=== PATIENT | female | born 2000 | race Hispanic/Latino ===

== ENCOUNTER 2018-09-14 | Emergency (ER) | payer BC, OTHER ==
[2018-09-14] MEDS ORDERED: IPRATROPIUM/ALBUTEROL SULFATE 3 ML SOLUTION IH ONE (00:24)
[2018-09-14] MEDS ORDERED: METHYLPREDNISOLONE SOD SUCC 40MG/ML 1ML ONE (01:04)
== END 2018-09-14 01:15 | disposition home or self-care (01) ==
LOC: EDH
DX: J45.909 Unspecified asthma, uncomplicated (principal); F15.10 Other stimulant abuse, uncomplicated
CPT/HCPCS: 71045; 94640; 96372; 99283; A4218; J2920

== ENCOUNTER 2019-03-10 22:24 | Emergency (ER) | payer BC ==
[2019-03-10] MEDS ORDERED: SODIUM CHLORIDE 0.9% 1000ML 1,000 ML IV ONE ×2 (22:49→23:03)
[2019-03-10 22:53] LABS: BASOPHILS % (AUTO) 0.7 % (0.0-5.0); EOSINOPHILS % (AUTO) 0.2 % (0.0-8.0); HEMATOCRIT 38.5 % (36-48); LYMPHOCYTES % (AUTO) 12.3 % (21.0-51.0); MEAN CORPUSCULAR HEMOGLOBIN 29.4 pg (27.0-33.0); MEAN CORPUSCULAR HGB CONC 34.7 g/dL (32.0-36.0); MEAN CORPUSCULAR VOLUME 84.9 fL (80-100); MONOCYTES % (AUTO) 8.8 % (3.0-13.0); PLATELET COUNT (AUTO) 282 K/uL (130-400); RED BLOOD CELL COUNT(AUTO) 4.54 MIL/uL (4.00-5.50); RED CELL DISTRIBUTION WIDTH 12.9 % (11.0-15.5); WHITE BLOOD COUNT (AUTO) 11.3 K/uL (4.8-10.8)
[2019-03-10 22:59] LABS: APPEARANCE,URINE Clear (CLEAR); BILIRUBIN,URINE Negative (NEGATIVE); COLOR,URINE Dark Yellow (YELLOW); GLUCOSE, URINE (UA) Negative (NEGATIVE); KETONES,URINE 15 mg/dL (NEGATIVE); LEUKOCYTE ESTERASE ,URINE Small (NEGATIVE); NITRATE,URINE Negative (NEGATIVE); OCCULT BLOOD,URINE Moderate (NEGATIVE); PROTEIN,URINE Trace mg/dL (NEGATIVE)
[2019-03-10 23:01] LABS: CARBON DIOXIDE 26 mmol/L (21-32); CHLORIDE 101 mmol/L (101-111); CREATININE 0.7 mg/dL (0.5-1.5); GLOMERULAR FILTR. RATE CALC 113 mL/min (>60); GLUCOSE,RANDOM 112 mg/dL (70-105); POTASSIUM 3.1 mmol/L (3.5-5.1); SODIUM SERUM 136 mmol/L (136-145); UREA NITROGEN, BLOOD 10 mg/dL (7-18)
[2019-03-10] MEDS ORDERED: ONDANSETRON HCL 4 MG/2 ML VIAL ONE (23:03)
[2019-03-10] MEDS ORDERED: LEVOFLOXACIN 750 MG/D5W 150 ML 150 ML ONE (23:04)
[2019-03-10 23:09] LABS: INR 1.07 (0.85-1.15); PARTIAL THROMBOPLASTIN TIME 29.5 SEC (26.3-35.5); PROTHROMBIN TIME 11.2 SEC (9.6-11.6)
[2019-03-10 23:13] LABS: ALANINE AMINOTRANSFERASE 23 U/L (12-78); ALBUMIN 3.6 g/dL (3.5-5.0); ASPARTATE AMINOTRANSFERASE 19 U/L (10-37); BILIRUBIN,TOTAL 1.1 mg/dL (0.2-1.0); CREATINE KINASE, TOTAL 39 U/L (21-232); MYOGLOBIN 21 ng/mL (10-92); TOTAL PROTEIN, SERUM 7.2 g/dL (6.0-8.3); TROPONIN I < 0.04 ng/mL (0.00-0.06)
[2019-03-10 23:18] LABS: WBC,URINE 0-1 /HPF (0-1)
[2019-03-10 23:19] LABS: BACTERIA,URINE Moderate /HPF (None Seen); MUCUS,URINE Moderate LPF (None Seen)
[2019-03-10] MEDS ORDERED: ACETAMINOPHEN 325 MG TAB ONE (23:29)
[2019-03-10] MEDS ORDERED: DiphenhydrAMINE HCL 50 MG/ML VIAL ONE (23:29)
[2019-03-11] MEDS ORDERED: SODIUM CHLORIDE 0.9% 500 ML IV ONE (01:08)
== END 2019-03-11 01:51 | disposition home or self-care (01) ==
LOC: EDH 22:24
DX: K52.9 Noninfective gastroenteritis and colitis, unspecified (principal); R50.9 Fever, unspecified
CPT/HCPCS: 36415; 71045; 80053; 81001; 82550; 83605; 83874; 84484; 85025; 85610; 85730; 87040 ×2; 87088; 93005; 96365; 96366; 96375; 99285; J1200; J1956; J2405; J7030 ×3

== ENCOUNTER 2019-03-24 15:44 | Emergency (ER) | payer BC ==
[2019-03-24] MEDS ORDERED: ACETAMINOPHEN EXTRA STRENGTH 500 MG TABLET ONE (16:20)
[2019-03-24] MEDS ORDERED: SIMETHICONE 80 MG TAB.CHEW ONE (16:20)
[2019-03-24] MEDS ORDERED: DICYCLOMINE HCL 10 MG/ML 2ML AMP IM ONE (16:20)
[2019-03-24] MEDS ORDERED: ONDANSETRON ODT 4 MG TAB ONE (16:21)
== END 2019-03-24 17:57 | disposition home or self-care (01) ==
LOC: EDH 15:44
DX: R11.2 Nausea with vomiting, unspecified (principal); R19.7 Diarrhea, unspecified; R50.9 Fever, unspecified; R10.84 Generalized abdominal pain; Z88.1 Allergy status to other antibiotic agents
CPT/HCPCS: 96372; 99284; J0500

== ENCOUNTER 2019-03-24 22:31 | Emergency (ER) | payer BC | END 2019-03-24 23:39 | disposition home or self-care (01) | LOC: EDH 22:31 | DX: R11.2 Nausea with vomiting, unspecified (principal); R19.7 Diarrhea, unspecified; R10.9 Unspecified abdominal pain; Z88.1 Allergy status to other antibiotic agents | CPT/HCPCS: 99281 ==

== ENCOUNTER 2020-02-16 00:30 | Emergency (ER) | payer BC ==
[2020-02-16] MEDS ORDERED: LIDOCAINE HCL 2% VISCOUS 15 ML UDCUP ONE (01:19)
[2020-02-16] MEDS ORDERED: MAG HYDROX/AL HYDROX/SIMETH ES 30 ML SUSP UDCUP ONE (01:19)
[2020-02-16] MEDS ORDERED: FAMOTIDINE 20MG TAB 20 MG TAB ONE (01:20)
[2020-02-16] MEDS ORDERED: PANTOPRAZOLE SODIUM 40 MG TABLET.DR ONE (01:20)
[2020-02-16 01:27] LABS: APPEARANCE,URINE Clear (CLEAR); BILIRUBIN,URINE Negative (NEGATIVE); COLOR,URINE Yellow (YELLOW); GLUCOSE, URINE (UA) Negative (NEGATIVE); KETONES,URINE Negative (NEGATIVE); LEUKOCYTE ESTERASE ,URINE Small (NEGATIVE); NITRATE,URINE Negative (NEGATIVE); OCCULT BLOOD,URINE Large (NEGATIVE); PROTEIN,URINE Negative (NEGATIVE)
[2020-02-16 01:29] LABS: HCG,QUAL RESULT NEGATIVE (NEGATIVE)
[2020-02-16 01:43] LABS: BACTERIA,URINE None Seen /HPF (None Seen); MUCUS,URINE Moderate LPF (None Seen); SQUAMOUS EPITHELIAL CELL,UR Few /HPF (0-2); WBC,URINE 0-1 /HPF (0-1)
== END 2020-02-16 01:50 | disposition home or self-care (01) ==
LOC: EDH 00:30
DX: R10.13 Epigastric pain (principal); K29.70 Gastritis, unspecified, without bleeding; Z88.6 Allergy status to analgesic agent
CPT/HCPCS: 81001; 81025

== ENCOUNTER 2020-04-29 17:34 | Emergency (ER) | payer BC | END 2020-04-29 18:52 | disposition home or self-care (01) | LOC: EDH 17:34 | DX: N63.20 Unspecified lump in the left breast, unspecified quadrant (principal); Z88.1 Allergy status to other antibiotic agents | CPT/HCPCS: 81025 ==

== ENCOUNTER 2020-06-26 10:47 | Emergency (ER) | payer BC | END 2020-06-26 11:20 | disposition home or self-care (01) | LOC: EDH 10:47 | DX: L03.818 Cellulitis of other sites (principal); Z88.1 Allergy status to other antibiotic agents | CPT/HCPCS: 99281 ==

== ENCOUNTER 2020-09-07 12:51 | Emergency (ER) | payer BC ==
[2020-09-07] MEDS ORDERED: CYCLOBENZAPRINE HCL 10 MG TABLET ONE (13:16)
[2020-09-07] MEDS ORDERED: KETOROLAC TROMETHAMINE 30MG/ML ONE (13:20)
[2020-09-07 13:44] LABS: APPEARANCE,URINE Clear (CLEAR); BILIRUBIN,URINE Negative (NEGATIVE); COLOR,URINE Yellow (YELLOW); GLUCOSE, URINE (UA) Negative (NEGATIVE); KETONES,URINE Negative (NEGATIVE); LEUKOCYTE ESTERASE ,URINE Negative (NEGATIVE); NITRATE,URINE Negative (NEGATIVE); OCCULT BLOOD,URINE Trace (NEGATIVE); PROTEIN,URINE Negative (NEGATIVE)
[2020-09-07 13:47] LABS: HCG,QUAL RESULT NEGATIVE (NEGATIVE)
[2020-09-07 13:52] LABS: RBC,URINE 0-1 /HPF (0-1); WBC,URINE 0-1 /HPF (0-1)
[2020-09-07 13:53] LABS: BACTERIA,URINE Rare /HPF (None Seen); SQUAMOUS EPITHELIAL CELL,UR Rare /HPF (0-2)
== END 2020-09-07 14:17 | disposition home or self-care (01) ==
LOC: EDH 12:51
DX: M54.40 Lumbago with sciatica, unspecified side (principal); Z88.1 Allergy status to other antibiotic agents
CPT/HCPCS: 72100; 81001; 81025; 96372; 99284; J1885

== ENCOUNTER 2021-09-15 19:37 | Emergency (ER) | payer BC ==
[~2021-09-15] VITALS: Ht 144.8 cm; Wt 42.2 kg
[2021-09-15 20:11] VITALS: BP 110/57
[2021-09-15] MEDS ORDERED: FLUT16H NASAL (20:15)
[2021-09-15] MEDS ORDERED: LORA10TA7 PO (20:15)
[2021-09-15] MEDS ORDERED: ACET-66 PO (20:15)
[2021-09-15] MEDS ORDERED: ACETAMINOPHEN 500 MG TABLET PO ONE (20:30)
== END 2021-09-15 20:44 | disposition home or self-care (01) ==
LOC: EDH 19:37
DX: U07.1 COVID-19 (principal); J32.9 Chronic sinusitis, unspecified; Z88.1 Allergy status to other antibiotic agents
CPT/HCPCS: 71045; 81025; 87635; 87804 ×2; 87880; 99283; C9803

== ENCOUNTER 2022-02-09 23:35 | Emergency (ER) | payer BC ==
[~2022-02-09] VITALS: Ht 144.8 cm; Wt 39.5 kg
[~2022-02-09 23:35] MED LIST: ACET-66 PO; FLUT16H NASAL; LORA10TA7 PO
[2022-02-10] MEDS ORDERED: 0.9% NACL 500ML IV.SOLN 500 ML IV ONE
[2022-02-10] MEDS ORDERED: KETOROLAC 15MG/ML VIAL (15MG/ML) IV ONE
[2022-02-10] MEDS ORDERED: ONDANSETRON 4MG INJ IVP ONE
[2022-02-10 00:47] LABS: BASOPHILS % (AUTO) 0.1 % (0.0-5.0); HEMATOCRIT 41.4 % (36-48); LYMPHOCYTES % (AUTO) 1.1 % (21.0-51.0); MEAN CORPUSCULAR HGB CONC 35.3 g/dL (32.0-36.0); MONOCYTES % (AUTO) 3.9 % (3.0-13.0); NEUTROPHILS % (AUTO) 94.2 % (40.0-77.0); PLATELET COUNT (AUTO) 290 K/uL (130-400); RED BLOOD CELL COUNT(AUTO) 4.87 MIL/uL (4.00-5.50)
[2022-02-10 00:58] LABS: CREATININE 0.7 mg/dL (0.5-1.5); POTASSIUM 3.1 mmol/L (3.5-5.1)
[2022-02-10 01:09] LABS: ALBUMIN 4.7 g/dL (3.5-5.0); BILIRUBIN,TOTAL 2.7 mg/dL (0.2-1.0); TOTAL PROTEIN, SERUM 7.9 g/dL (6.0-8.3)
[2022-02-10 01:36] LABS: BILIRUBIN,URINE Small (NEGATIVE); COLOR,URINE Dark Yellow (YELLOW); GLUCOSE, URINE (UA) Negative (NEGATIVE); KETONES,URINE >=160 mg/dL (NEGATIVE); LEUKOCYTE ESTERASE ,URINE Small (NEGATIVE); NITRATE,URINE Negative (NEGATIVE); OCCULT BLOOD,URINE Negative (NEGATIVE); PROTEIN,URINE POS 2+ mg/dL (NEGATIVE); UROBILINOGEN,URINE 0.2 mg/dL (0.2-1.0)
[2022-02-10 01:42] LABS: APPEARANCE,URINE SLIGHTLY CLOUDY (CLEAR)
[2022-02-10 01:44] LABS: BACTERIA,URINE Moderate /HPF (None Seen); MUCUS,URINE Many LPF (None Seen); RBC,URINE 0-1 /HPF (0-1)
[2022-02-10] MEDS ORDERED: NITROGLYCERIN 0.4 MG SL TAB SL ONE (02:40)
[2022-02-10] MEDS ORDERED: CEPH500B PO (03:51)
[2022-02-10] MEDS ORDERED: ONDA-104 PO (03:51)
[2022-02-10] MEDS ORDERED: CEFTRIAXONE 1G VIAL ONE (03:53)
[2022-02-10 04:00] VITALS: BP 95/61
[2022-02-10] MEDS ORDERED: CEFTRIAXONE 1G VIAL IVP ONE (04:00)
== END 2022-02-10 04:21 | disposition home or self-care (01) ==
LOC: EDH 23:35
DX: R11.2 Nausea with vomiting, unspecified (principal); R19.7 Diarrhea, unspecified; E86.9 Volume depletion, unspecified; Z88.1 Allergy status to other antibiotic agents; Z79.899 Other long term (current) drug therapy
CPT/HCPCS: 36415; 74176; 80053; 81001; 84702; 85025; 87088; 96361; 96374; 96375; 99284; J0696; J1885; J2405; J7040

== ENCOUNTER 2022-05-06 00:58 | Emergency (ER) | payer BC ==
[~2022-05-06] VITALS: Ht 144.8 cm; Wt 40.8 kg
[~2022-05-06 00:58] MED LIST changes: +CEPH500B PO; +ONDA-104 PO
[2022-05-06 01:31] LABS: BASOPHILS % (AUTO) 0.4 % (0.0-5.0); EOSINOPHILS % (AUTO) 1.3 % (0.0-8.0); HEMATOCRIT 34.5 % (36-48); LYMPHOCYTES % (AUTO) 24.5 % (21.0-51.0); MEAN CORPUSCULAR HEMOGLOBIN 30.1 pg (27.0-33.0); MEAN CORPUSCULAR HGB CONC 35.7 g/dL (32.0-36.0); MEAN CORPUSCULAR VOLUME 84.4 fL (79-99); MONOCYTES % (AUTO) 9.9 % (3.0-13.0); NEUTROPHILS % (AUTO) 63.5 % (40.0-77.0); PLATELET COUNT (AUTO) 284 K/uL (130-400); RED BLOOD CELL COUNT(AUTO) 4.09 MIL/uL (4.00-5.50); WHITE BLOOD COUNT (AUTO) 9.3 K/uL (4.8-10.8)
[2022-05-06 01:46] LABS: CREATININE 0.4 mg/dL (0.5-1.5); POTASSIUM 3.4 mmol/L (3.5-5.1)
[2022-05-06 01:48] LABS: APPEARANCE,URINE CLEAR (CLEAR); BILIRUBIN,URINE NEGATIVE (NEGATIVE); COLOR,URINE YELLOW (YELLOW); GLUCOSE, URINE (UA) NEGATIVE (NEGATIVE); KETONES,URINE NEGATIVE (NEGATIVE); LEUKOCYTE ESTERASE ,URINE SMALL (NEGATIVE); NITRATE,URINE NEGATIVE (NEGATIVE); OCCULT BLOOD,URINE TRACE-LYSED (NEGATIVE); PROTEIN,URINE NEGATIVE (NEGATIVE); UROBILINOGEN,URINE 0.2 mg/dL (0.2-1.0)
[2022-05-06 01:52] LABS: ALBUMIN 3.7 g/dL (3.5-5.0); TOTAL PROTEIN, SERUM 6.4 g/dL (6.0-8.3)
[2022-05-06 01:59] LABS: BACTERIA,URINE Moderate /HPF (None Seen); MUCUS,URINE Few LPF (None Seen)
[2022-05-06] MEDS ORDERED: ACETAMINOPHEN 325 MG TAB PO ONE (03:00)
[2022-05-06] MEDS ORDERED: ONDANSETRON ODT 4MG TAB SL ONE (03:00)
[2022-05-06 03:20] VITALS: BP 104/61
[2022-05-06] MEDS ORDERED: MORPHINE 4 MG SYG IVP ONE (03:30)
[2022-05-06] MEDS ORDERED: CEFTRIAXONE 1G VIAL IVP ONE (03:30)
[2022-05-06] MEDS ORDERED: CEPH500B PO (04:41)
[2022-05-06] MEDS ORDERED: ONDA4TAB10 PO (04:41)
[2022-05-06] MEDS ORDERED: ACET-2079 PO (04:41)
== END 2022-05-06 05:00 | disposition home or self-care (01) ==
LOC: EDH 00:58
DX: O26.91 Pregnancy related conditions, unspecified, first trimester (principal); N83.12 Corpus luteum cyst of left ovary; Z88.1 Allergy status to other antibiotic agents; Z79.899 Other long term (current) drug therapy; Z3A.01 Less than 8 weeks gestation of pregnancy
CPT/HCPCS: 99284; 96374; 76770; 76801; 96375; 80053; 84702; 83690; 85025; 87088; 81001; 81025; 36415; J0696; J2270

== ENCOUNTER 2025-06-25 01:57 | Emergency (ER) | payer SELFPAY ==
[~2025-06-25] VITALS: Ht 144.8 cm; Wt 45.4 kg
[~2025-06-25 01:57] MED LIST changes: +ACET-2079 PO; +ONDA-243 PO
[2025-06-25 02:30] VITALS: BP 107/66; PULSE 87; RESP 16; TEMP 97.5
--- NOTE | 2025-06-25 02:35 | NUR ---
UA CUP PROVIDED
--- NOTE | 2025-06-25 02:39 | NUR ---
COVID AND FLU SWABS COLLECTED AND SENT
[2025-06-25 03:06] LABS: INFLUENZA TYPE A Negative For Type A (NEGATIVE); INFLUENZA TYPE B Negative For Type B (NEGATIVE)
[2025-06-25 03:12] LABS: SARS-CoV-2, RNA, NAAT NEGATIVE SARS CoV-2 (NEGATIVE)
--- NOTE | 2025-06-25 03:53 | NUR ---
UNABLE TO BED PT, IN RESTROOM
--- NOTE | 2025-06-25 03:58 | NUR ---
RESTROOM CHECK, NO ONE IN RESTROOM, FAMILY MEMBER NOT IN LOBBY EITHER
--- NOTE | 2025-06-25 04:14 | NUR ---
PT CALLED, NO ANSWER
--- NOTE | 2025-06-25 04:26 | NUR ---
PT CALLED, NOT IN MAIN LOBBY, NOT IN MAIN ER. FAMIY MEMBER NO LONGER IN LOBBY WELL. PT NOR FAMILY COMMUNICATED WITH STAFF ON DESIRE TO LEAVE.
--- NOTE | 2025-06-25 04:43 | NUR ---
PT CALLED, NO ANSWER, NOT ON LOBBY OR RESTROOM. ANDREA CRUZ AND DR MAE MADE AWARE
== END 2025-06-25 04:45 | disposition left against medical advice (07) ==
LOC: EDH 02:29
DX: R11.2 Nausea with vomiting, unspecified (principal); R10.84 Generalized abdominal pain; R19.7 Diarrhea, unspecified; Z20.822 Contact with and (suspected) exposure to COVID-19; Z53.21 Procedure and treatment not carried out due to patient leaving prior to being seen by health care provider
CPT/HCPCS: 87635; 87804; 99281